=== PATIENT | male | born 1945 | race Asian ===

== ENCOUNTER 2017-11-06 06:17 | Day surgery (SDC) | payer MEDICARE, OTHER ==
[2017-11-06] MEDS ORDERED: ECOTRIN PO NR (08:29)
[2017-11-06] MEDS ORDERED: NACL 0.9% 500 ML 500 ML IV SCH (09:00)
[2017-11-06 09:44] LABS: BUN/Creatinine Ratio 25; Blood Urea Nitrogen 20 mg/dL (9-20); Hemolysis Index 7
[2017-11-06 09:45] LABS: Eosinophils % (Auto) TNR % (0.0-4.3); Monocytes % (Auto) TNR % (0.0-7.3)
[2017-11-06 09:46] LABS: Basophils # (Auto) TNR K/mm3 (0.0-0.1); Eosinophils # (Auto) TNR K/mm3 (0.0-0.4); Hematocrit TNR % (35.5-45.6); Hemoglobin TNR gm/dl (11.8-15.2); Mean Corpuscular Volume TNR fl (84-94); Monocytes # (Auto) TNR K/mm3 (0.0-0.8); Red Blood Count TNR M/mm3 (3.65-5.03)
[2017-11-06 09:47] LABS: Basophils % (Auto) TNR % (0.0-1.8); Lymphocytes # (Auto) TNR K/mm3 (1.2-5.4); Lymphocytes % (Auto) TNR % (13.4-35.0); Mean Corpuscular HGB Conc TNR % (32-34); Mean Corpuscular Hemoglobin TNR pg (28-32); Mean Platelet Volume TNR fl (6-12); Platelet Count TNR K/mm3 (140-440); Red Cell Distribution Width TNR % (13.2-15.2)
[2017-11-06 10:18] LABS: Basophils # (Auto) 0.1 K/mm3 (0.0-0.1); Basophils % (Auto) 1.4 % (0.0-1.8); Eosinophils # (Auto) 0.5 K/mm3 (0.0-0.4); Eosinophils % (Auto) 7.4 % (0.0-4.3); Lymphocytes # (Auto) 1.6 K/mm3 (1.2-5.4); Lymphocytes % (Auto) 24.9 % (13.4-35.0); Monocytes # (Auto) 0.7 K/mm3 (0.0-0.8); Monocytes % (Auto) 10.1 % (0.0-7.3)
[2017-11-06 10:20] LABS: Hematocrit 61.1 % (35.5-45.6); Hemoglobin 18.9 gm/dl (11.8-15.2); Mean Corpuscular HGB Conc 31 % (32-34); Mean Corpuscular Hemoglobin 22 pg (28-32); Mean Corpuscular Volume 71 fl (84-94); Platelet Count 292 K/mm3 (140-440); Red Cell Distribution Width 17.4 % (13.2-15.2)
[2017-11-06 10:27] LABS: INR 1.05 (0.87-1.13)
[2017-11-06 10:28] LABS: Partial Thromboplastin Time 33.5 Sec. (24.2-36.6)
[2017-11-06] MEDS ORDERED: HEPARIN/NS 5000 UNIT/500ML(CATH LAB) 1,000 ML IR ONE (11:05)
[2017-11-06] MEDS ORDERED: HEPARIN 10,000 UNITS/10 ML ONE (11:05)
[2017-11-06] MEDS ORDERED: CALAN ONE (11:05)
[2017-11-06] MEDS ORDERED: NITROGLYCERIN SYRINGE 0 ML ONE (11:06)
[2017-11-06] MEDS ORDERED: SUBLIMAZE ONE (11:06)
[2017-11-06] MEDS ORDERED: XYLOCAINE 2% INFILTRATI ONE (11:06)
[2017-11-06] MEDS ORDERED: VERSED ONE (11:06)
[2017-11-06] MEDS ORDERED: HEPARIN/NS 5000 UNIT/500ML(CATH LAB) 500 ML IR ONE (11:32)
[2017-11-06] MEDS ORDERED: ULTRAM PO PRN (12:33)
--- NOTE | 2017-11-06 12:36 | Discharge Summary ---
Short Stay Discharge Plan Activity: advance as tolerated Weight Bearing Status: Partial Weight Bearing Diet: low fat, low cholesterol, low salt Wound: keep clean and dry Special Instructions: no heavy lifting (3 days) Follow up with: CARLIN KLEIN MD [Primary Care Provider] - 7 Days SIOMARA MEADOWS MD [Staff Physician] - 7 Days
--- NOTE | 2017-11-06 12:44 | Cardiac Catherization Report ---
CARDIAC CATHETERIZATION REASON FOR PROCEDURE: Shortness of breath, cardiomyopathy, and abnormal thallium stress test. PROCEDURES: 1. Right heart catheterization. 2. Left heart catheterization. 3. Left ventricle angiography. 4. Selective left and right coronary angiography. DESCRIPTION OF PROCEDURE: The patient was prepped and draped in a sterile fashion after informed consent. The right femoral artery and vein were both entered using Seldinger technique. A 6-Ukrainian sheath was inserted into the artery and an 8-Ukrainian in the vein. A Hayden-Gus catheter was then advanced to the pulmonary artery position. A pigtail catheter was advanced into the left ventricle. Simultaneous left and right heart filling pressures were recorded. Cardiac output was measured by thermodilution. The Hayden-Gus catheter was then withdrawn and right heart pressures were recorded on pullback. Left ventricular angiography was then performed following which the pigtail catheter was withdrawn across the aortic valve and transaortic gradient recorded. Finally, selective left and right coronary angiography was performed using #4 right and left Robbie catheters. The catheters were removed, the sheath was removed, hemostasis in the arterial position was achieved using an Angio-Seal device and at the venous site manual compression. The patient was returned to the postprocedure unit in stable condition. There were no complications. FINDINGS: HEMODYNAMICS: Mean right atrial pressure was 12. Right ventricular pressure was 60/15. Pulmonary artery pressure was 60/25. The mean pulmonary artery wedge pressure was 15-18. Left ventricle end diastolic pressure was 20. Ascending aortic pressure was 150/74. There was no significant pressure gradient on pullback across the aortic valve. Cardiac output was calculated at 8.2 by thermodilution. CORONARY ANGIOGRAPHY: The left main coronary artery was free of significant disease. There was diffuse mild atherosclerosis of the proximal LAD. This was followed by diffuse moderate atherosclerosis of the mid LAD. The distal LAD was notable for diffuse moderate to severe atherosclerosis involving the distal and apical segment. In addition, the first diagonal branch of the LAD was a medium sized vessel that contained an ostial 70% stenosis, followed by a long, 60-70% stenosis of its mid segment. A large, ramus intermedius artery contained mild atherosclerosis of its proximal segment. The circumflex was a large, codominant system that contained mild disease in its proximal segment with a 30-40% luminal narrowing. There was another 30% stenosis of the distal circumflex involving the distal obtuse marginal. The right coronary artery was a small to medium caliber vessel, as noted, codominant with the circumflex. This vessel contained diffuse moderate atherosclerosis of its mid segment. There was an up to 50-60% luminal stenosis of the mid right coronary. The left ventricle was moderately to severely dilated. There was severe left ventricular systolic dysfunction, diffuse hypokinesis with left ventricular ejection fraction 25-30%. CONCLUSION: 1. [id number] elevation of right and left heart filling pressures, [id number] pulmonary hypertension. 2. Moderate severity, diffuse 3-vessel coronary disease. 3. Dilated cardiomyopathy with severe left ventricular systolic dysfunction, ejection fraction 25-30%. The severity of the cardiomyopathy appears disproportionate to the degree of coronary stenosis present. RECOMMENDATION: 1. Aggressive risk factor modification and medical therapy for diffuse multivessel nonocclusive coronary disease. 2. Medical therapy for predominantly nonischemic cardiomyopathy. JOB# [id number] MJ/NTS
[2017-11-06] MEDS ORDERED: NACL 0.9% 1000 ML 1,000 ML IV SCH (13:00)
[2017-11-06 16:17] VITALS: BP 145/91
== END 2017-11-06 16:40 | disposition home or self-care (01) ==
LOC: CATHLABREC 06:17
PROVIDERS: ATTEND Internal Medicine Cardiovascular Disease
DX: I25.10 Atherosclerotic heart disease of native coronary artery without angina pectoris (principal); I11.0 Hypertensive heart disease with heart failure; I50.20 Unspecified systolic (congestive) heart failure; I42.0 Dilated cardiomyopathy; Z82.49 Family history of ischemic heart disease and other diseases of the circulatory system; Z79.899 Other long term (current) drug therapy
CPT/HCPCS: 36415; 80048; 85025; 85610; 85730; 93005; 93010; 93460; 99156; 99157; C1760; C1894; J1644; J2250; J3010; J7040; Q9967